=== PATIENT | male | born 2000 | race African-American/Black ===

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

== ENCOUNTER 2021-10-04 01:12 | Emergency (ER) | payer OTHER | END 2021-10-04 03:00 | disposition home or self-care (01) | LOC: ERS 01:12 | DX: R07.2 Precordial pain (principal) | CPT/HCPCS: 71045; 93005 ==

== ENCOUNTER 2021-12-30 16:55 | Emergency (ER) | payer OTHER ==
[2021-12-30 17:30] LABS: #Eosinphils 0.2 thou/uL (0.0-0.7); #Lymphocytes 1.7 thou/uL (1.20-3.40); #Monocytes 0.4 thou/uL (0.11-0.59); #Neutrophils 1.8 thou/uL (1.40-6.50); %Basophils 0.7 % (0.0-1.0); %Eosinophils 4.5 % (0.0-10.0); %Lymphocytes 41.7 % (28.0-48.0); %Monocytes 8.8 % (0.0-4.0); %Neutrophils 44.2 % (31.0-61.0); Hemoglobin 14.8 g/dL (14.0-18.0); Mean Corpuscular HGB CONC 33.5 g/dL (32.0-36.0); Mean Corpuscular Hemoglobin 30.6 pg (25.0-35.0); Mean Corpuscular Volume 91.5 fL (78.0-98.0); Mean Platelet Volume 9.6 fL (7.4-10.4); Platelet Count 135 thou/uL (130-400); RBC Distribution Width 10.9 % (11.5-14.5); Red Blood Cell (RBC) Count 4.84 mill/uL (4.00-5.20); White Blood Cell (WBC) Count 4.1 thou/uL (4.8-10.8)
[2021-12-30 17:51] LABS: ALT (SGPT) 17 U/L (8-55); AST (SGOT) 17 U/L (5-34); Albumin 4.2 g/dL (3.5-5.0); Alkaline Phosphatase 72 U/L (50-130); Anion Gap 14 mmol/L (10-20); BUN (Urea Nitrogen) 14 mg/dL (8.9-20.6); Bilirubin, Total 0.6 mg/dL (0.2-1.2); Calc. Creatinine Clearance 0 mL/min (70-130); Calcium 9.4 mg/dL (7.8-10.44); Carbon Dioxide 24 mmol/L (22-29); Chloride 105 mmol/L (98-107); Estimated GFR 116; Globulin 2.7 g/dL (2.4-3.5); Glucose 100 mg/dL (70-105); Lipase 46 U/L (8-78); Potassium 3.7 mmol/L (3.5-5.1); Protein, Total 6.9 g/dL (6.0-8.3); Sodium 139 mmol/L (136-145)
[2021-12-30 19:31] LABS: Bilirubin Negative (Negative); Blood, Urine Negative (Negative); Clarity Clear (Clear); Glucose, Urine (Dipstick) Normal (Negative); Ketone, Urine Negative (Negative); Leukocyte Negative Leu/uL (Negative); Nitrite Negative (Negative); Protein, Urine (Dipstick) Negative (Neg-Trace); Specific Gravity, Urine 1.015 (1.002-1.036); Urobilinogen Normal mg/dL (Less than 2)
== END 2021-12-30 20:11 | disposition home or self-care (01) ==
LOC: ERS 16:55
DX: R10.9 Unspecified abdominal pain (principal)
CPT/HCPCS: 36415; 80053; 81003; 83690; 85025; 99284

== ENCOUNTER 2022-02-01 19:22 | Emergency (ER) | payer OTHER | END 2022-02-01 22:22 | disposition home or self-care (01) | LOC: ERS 19:22 | DX: B34.9 Viral infection, unspecified (principal); Z20.822 Contact with and (suspected) exposure to COVID-19 | CPT/HCPCS: 87804; 99283 ==

== ENCOUNTER 2022-11-14 21:04 | Emergency (ER) | payer OTHER, SELFPAY ==
[2022-11-14] MEDS ORDERED: Ibuprofen 200 MG TAB ONE (22:31)
[2022-11-15] MEDS ORDERED: Bacitracin 1 PK ONE (00:22)
== END 2022-11-15 01:09 | disposition home or self-care (01) ==
LOC: ERS 21:04
DX: S62.326A Displaced fracture of shaft of fifth metacarpal bone, right hand, initial encounter for closed fracture (principal); S61.011A Laceration without foreign body of right thumb without damage to nail, initial encounter; S41.112A Laceration without foreign body of left upper arm, initial encounter; I10 Essential (primary) hypertension; W22.8XXA Striking against or struck by other objects, initial encounter
CPT/HCPCS: 12004; 29125

== ENCOUNTER 2022-11-30 11:46 | Emergency (ER) | payer SELFPAY | END 2022-11-30 13:07 | disposition home or self-care (01) | LOC: ERS 11:46 | DX: S61.411D Laceration without foreign body of right hand, subsequent encounter (principal); S61.412D Laceration without foreign body of left hand, subsequent encounter; W22.09XD Striking against other stationary object, subsequent encounter ==